=== PATIENT | female | born 1990 | race Caucasian/White ===

== ENCOUNTER 2020-07-03 15:07 | Observation (INO) ==
[2020-07-03 15:39] LABS: Basophils % 0.4 %; Hemoglobin 8.5 g/dL (11.5-15.4); Immature Granulocytes % 0.4 % (0-4); Red Cell Distribution Width 18.6 % (11.5-14.5)
[2020-07-03 15:41] LABS: Eosinophils # 0.1 K/mcL (0.0-0.6); Eosinophils % 1.3 %; Hematocrit 28.9 % (35.3-44.9); Immature Platelets 5.7 % (1.1-6.1); Lymphocytes # 1.9 K/mcL (0.6-4.6); Lymphocytes % 17.9 %; Mean Corpuscular HGB Conc 29.4 g/dL (31.6-35.5); Mean Corpuscular Hemoglobin 19.7 pg (28.0-33.3); Mean Corpuscular Volume 66.9 fL (83.0-100.0); Mean Platelet Volume 10.8 fL (9.4-12.4); Monocytes # 0.6 K/mcL (0.0-1.3); Monocytes % 5.9 %; Neutrophils # 7.8 K/mcL (1.6-8.9); Platelet Count 250 K/mcL (140-400); Red Blood Count 4.32 M/mcL (3.82-4.97); Segmented Neutrophils % 74.1 %; White Blood Count 10.5 K/mcL (4.3-11.1)
[2020-07-03 15:50] LABS: Bilirubin,Urine Negative (Negative); Blood,Urine Negative (Negative); Clarity,Urine Clear (Clear); Color,Urine Light-Yellow (Yellow); Glucose,Urine (UA) Normal (Normal); Ketones,Urine Negative (Negative); Leukocyte Esterase,Urine Negative (Negative); Nitrite,Urine Negative (Negative); Protein,Urine Trace mg/dL (Neg-Trace); Urobilinogen,Urine Normal (Normal)
[2020-07-03] MEDS ORDERED: *HR* FentaNYL (PF) 100 MCG/2 ML VIAL IVP ONE (15:57)
[2020-07-03] MEDS ORDERED: Ondansetron 4 MG/2 ML VIAL IVP ONE (15:57)
[2020-07-03] MEDS ORDERED: Pantoprazole 40 MG VIAL IVP ONE (15:57)
[2020-07-03 15:59] LABS: Alanine Aminotransferase 12 Units/L (7-52); Albumin 3.9 g/dL (3.5-5.7); Albumin/Globulin Ratio 1.4 (1.1-2.2); Alkaline Phosphatase 54 Units/L (34-104); Aspartate Amino Transferase 18 Units/L (13-39); BUN/Creatinine Ratio 16 (6-26); Bilirubin,Direct 0.1 mg/dL (0.0-0.2); Bilirubin,Indirect 0.2 mg/dL (0.0-1.0); Bilirubin,Total 0.3 mg/dL (0.3-1.0); Blood Urea Nitrogen 11 mg/dL (6-20); Calcium 8.7 mg/dL (8.6-10.3); Carbon Dioxide 27 mEq/L (23-29); Chloride 109 mEq/L (98-107); Globulin 2.7 g/dL (2.4-3.5); Glucose 109 mg/dL (70-105); Lipase 38 Units/L (11-82); Osmolality,Calculated 288 (280-300); Potassium 3.5 mEq/L (3.5-5.1); Sodium 139 mEq/L (136-145); Total Protein 6.6 g/dL (6.4-8.9); eGFR For African Americans > 60 (> 60); eGFR For Non-African Americans > 60 (> 60)
[2020-07-03 16:11] LABS: Microcytosis Present (Not Present); Ovalocytes 1+ (Not Present); Platelet Estimate Normal (Normal)
[2020-07-03] MEDS ORDERED: Isovue-370 500 ML BOTTLE IVP ONE (16:20)
[2020-07-03] MEDS ORDERED: Ondansetron ODT 4 MG TAB.RAPDIS SL PRN (16:25)
[2020-07-03] MEDS ORDERED: Mag Hydrox/Al Hydrox/Simeth 30 ML UDC PO PRN (16:25)
[2020-07-03] MEDS ORDERED: Naloxone 0.4 MG/ML INJ IVP PRN (16:25)
[2020-07-03 17:15] LABS: Ferritin < 8 ng/mL (10-120); Iron < 10 mcg/dL (50-170); Transferrin 308 mg/dL (203-362)
[2020-07-03 17:16] LABS: Hemoglobin 7.6 g/dL (11.5-15.4)
[2020-07-03 17:18] LABS: Hematocrit 26.6 % (35.3-44.9)
[2020-07-03] MEDS ORDERED: Pantoprazole 40 MG VIAL IVP SCH (18:00)
[2020-07-03] MEDS: Iron Sucrose Complex 250 MG in 0.9 % Sodium Chloride 250 ML IVPB SCH (20:55)
[2020-07-03 21:47] LABS: Hematocrit 27.2 % (35.3-44.9); Hemoglobin 7.7 g/dL (11.5-15.4)
[2020-07-04] MEDS: Pantoprazole 40 MG VIAL IVP SCH ×2 (05:04→16:59)
[2020-07-04 05:14] LABS: Hematocrit 29.3 % (35.3-44.9); Hemoglobin 8.1 g/dL (11.5-15.4); Mean Corpuscular HGB Conc 27.6 g/dL (31.6-35.5); Mean Corpuscular Hemoglobin 19.1 pg (28.0-33.3); Mean Corpuscular Volume 68.9 fL (83.0-100.0); Platelet Count 242 K/mcL (140-400); Red Blood Count 4.25 M/mcL (3.82-4.97); Red Cell Distribution Width 18.6 % (11.5-14.5); White Blood Count 7.2 K/mcL (4.3-11.1)
[2020-07-04 05:33] LABS: Alanine Aminotransferase 11 Units/L (7-52); Albumin 3.8 g/dL (3.5-5.7); Albumin/Globulin Ratio 1.5 (1.1-2.2); Alkaline Phosphatase 49 Units/L (34-104); Aspartate Amino Transferase 16 Units/L (13-39); BUN/Creatinine Ratio 14 (6-26); Bilirubin,Total 0.3 mg/dL (0.3-1.0); Blood Urea Nitrogen 10 mg/dL (6-20); Calcium 8.5 mg/dL (8.6-10.3); Carbon Dioxide 26 mEq/L (23-29); Chloride 108 mEq/L (98-107); Globulin 2.6 g/dL (2.4-3.5); Glucose 92 mg/dL (70-105); Osmolality,Calculated 287 (280-300); Potassium 3.7 mEq/L (3.5-5.1); Sodium 139 mEq/L (136-145); Total Protein 6.4 g/dL (6.4-8.9); eGFR For African Americans > 60 (> 60); eGFR For Non-African Americans > 60 (> 60)
[2020-07-04] MEDS: Iron Sucrose Complex 250 MG in 0.9 % Sodium Chloride 250 ML IVPB SCH (08:49)
[2020-07-04 10:23] LABS: Adenovirus Not Detected (Not Detect); Bordetella Pertussis Not Detected (Not Detect); Chlamydophila pneumoniae Not Detected (Not Detect); Coronavirus 229E Not Detected (Not Detect); Coronavirus HKU1 Not Detected (Not Detect); Coronavirus NL63 Not Detected (Not Detect); Coronavirus OC43 Not Detected (Not Detect); Human Metapneumovirus Not Detected (Not Detect); Human Rhinovirus/Enterovirus Not Detected (Not Detect); Influenza A Subtype 2009 H1 Not Detected (Not Detect); Influenza B Not Detected (Not Detect); Mycoplasma pneumoniae Not Detected (Not Detect); Parainfluenza Virus 1 Not Detected (Not Detect); Parainfluenza Virus 2 Not Detected (Not Detect); Parainfluenza Virus 3 Not Detected (Not Detect); Parainfluenza Virus 4 Not Detected (Not Detect); Respiratory Syncytial Virus Not Detected (Not Detect); SARS-CoV-2 Not Detected (Not Detect)
[2020-07-04] MEDS ORDERED: Lidocaine -MPF 2% 2 ML VIAL ONE (10:36)
[2020-07-04] MEDS ORDERED: *HR* Propofol 200 MG/20 ML VIAL IVP ONE (10:36)
[2020-07-04] MEDS ORDERED: Ibuprofen 400 MG TABLET PO PRN (12:54)
[2020-07-04 17:05] VITALS: BP 114/67
== END 2020-07-04 18:17 | disposition home or self-care (01) ==
LOC: SUATTDRO → EMEROOARM 15:07 → 3BNU 15:07 → SUATTDRO 16:36 → 3BNU 17:52
PROVIDERS: ADMIT Family Medicine; ATTEND Family Medicine
PROC: ENDOEBX (2020-07-04 10:45)

== ENCOUNTER 2020-07-07 19:57 | Observation (INO) ==
[2020-07-07] MEDS ORDERED: Ondansetron 4 MG/2 ML VIAL IVP ONE (20:08)
[2020-07-07] MEDS ORDERED: GI Cocktail 40 ML EACH PO ONE (20:08)
[2020-07-07] MEDS ORDERED: 0.9 % Sodium Chloride 1,000 ML IVC ONE (20:08)
[2020-07-07] MEDS ORDERED: Morphine Sulfate 2 MG/ML SYRINGE IVP ONE (20:08)
[2020-07-07] MEDS ORDERED: Isovue-370 500 ML BOTTLE IVP ONE (20:10)
[2020-07-07 20:32] LABS: Hemoglobin 8.3 g/dL (11.5-15.4)
[2020-07-07 20:34] LABS: Basophils % 0.4 %; Eosinophils # 0.2 K/mcL (0.0-0.6); Eosinophils % 3.4 %; Immature Granulocytes % 0.4 % (0-4); Lymphocytes % 28.8 %; Mean Corpuscular HGB Conc 28.6 g/dL (31.6-35.5); Mean Corpuscular Hemoglobin 19.6 pg (28.0-33.3); Mean Corpuscular Volume 68.6 fL (83.0-100.0); Monocytes # 0.5 K/mcL (0.0-1.3); Monocytes % 7.3 %; Neutrophils # 4.1 K/mcL (1.6-8.9); Platelet Count 211 K/mcL (140-400); Red Blood Count 4.23 M/mcL (3.82-4.97); Red Cell Distribution Width 19.9 % (11.5-14.5); Segmented Neutrophils % 59.7 %; White Blood Count 6.9 K/mcL (4.3-11.1)
[2020-07-07 20:37] LABS: Bilirubin,Urine Negative (Negative); Blood,Urine Moderate (Negative); Clarity,Urine Clear (Clear); Color,Urine Light-Yellow (Yellow); Glucose,Urine (UA) Normal (Normal); Ketones,Urine Negative (Negative); Leukocyte Esterase,Urine Negative (Negative); Mucus,Urine Few per lpf (None-Few); Nitrite,Urine Negative (Negative); Protein,Urine Trace mg/dL (Neg-Trace); RBC,Urine 0-3 per hpf (0-3); Specific Gravity,Urine 1.029 (1.010-1.025); Squamous Epithelial Cell,Urine Few per hpf (None-Few); WBC,Urine 0-3 per hpf (0-3)
[2020-07-07 20:40] LABS: Prothrombin Time 11.4 Seconds (9.4-12.1)
[2020-07-07 20:42] LABS: Activated Partial Thrombo Time 28.9 Seconds (26.0-36.0)
[2020-07-07 20:44] LABS: Hypochromasia Present (Not Present); Microcytosis Present (Not Present)
[2020-07-07 20:54] LABS: Alanine Aminotransferase 56 Units/L (7-52); Albumin 3.7 g/dL (3.5-5.7); Albumin/Globulin Ratio 1.4 (1.1-2.2); Alkaline Phosphatase 132 Units/L (34-104); Aspartate Amino Transferase 106 Units/L (13-39); BUN/Creatinine Ratio 18 (6-26); Bilirubin,Direct 0.1 mg/dL (0.0-0.2); Bilirubin,Indirect 0.2 mg/dL (0.0-1.0); Bilirubin,Total 0.3 mg/dL (0.3-1.0); Blood Urea Nitrogen 12 mg/dL (6-20); Calcium 8.4 mg/dL (8.6-10.3); Carbon Dioxide 25 mEq/L (23-29); Chloride 107 mEq/L (98-107); Globulin 2.7 g/dL (2.4-3.5); Glucose 85 mg/dL (70-105); Lipase 40 Units/L (11-82); Osmolality,Calculated 285 (280-300); Potassium 3.6 mEq/L (3.5-5.1); Sodium 138 mEq/L (136-145); Total Protein 6.4 g/dL (6.4-8.9); Troponin I < 0.03 ng/mL (< 0.04); eGFR For African Americans > 60 (> 60); eGFR For Non-African Americans > 60 (> 60)
[2020-07-07] MEDS ORDERED: *HR* HYDROmorphone (PF) 1 MG/ML SYRINGE IVP ONE (22:26)
[2020-07-07] MEDS ORDERED: Methylnaltrexone 12 MG/0.6 ML SYRINGE SQ ONE (22:27)
[2020-07-07] MEDS ORDERED: *HR* Metoprolol 5 MG/5 ML VIAL IVP PRN (23:34)
[2020-07-07] MEDS ORDERED: *HR* OxyCODONE/APAP 5/325 TABLET PO PRN (23:34)
[2020-07-07] MEDS ORDERED: Ondansetron 4 MG/2 ML VIAL IVP PRN (23:34)
[2020-07-07] MEDS ORDERED: 0.9 % Sodium Chloride 1,000 ML IVC SCH (23:45)
[2020-07-08] MEDS: cefOXitin 2,000 MG in 0.9 % Sodium Chloride Mini Bag 100 ML IVP SCH ×2 (00:11→08:06)
[2020-07-08] MEDS ORDERED: *HR* Midazolam HCl 2 MG/2 ML VIAL ONE (06:54)
[2020-07-08] MEDS ORDERED: *HR* Propofol 200 MG/20 ML VIAL IVP ONE (06:54)
[2020-07-08] MEDS ORDERED: *HR* FentaNYL (PF) 100 MCG/2 ML VIAL ONE (06:54)
[2020-07-08] MEDS ORDERED: *HR* Rocuronium Bromide 50 MG/5 ML VIAL ONE (07:13)
[2020-07-08] MEDS ORDERED: Lidocaine -MPF 2% 2 ML VIAL ONE (07:13)
[2020-07-08] MEDS ORDERED: Ondansetron 4 MG/2 ML VIAL ONE (07:13)
[2020-07-08] MEDS ORDERED: Lidocaine HCL 4 ML Topical Solution (Laryng-O-Jet Kit Sterile Pak) TP ONE (07:13)
[2020-07-08] MEDS ORDERED: Isovue-300 50ML VIAL ONE (07:21)
[2020-07-08] MEDS ORDERED: Acetaminophen IV 1,000 MG/100 ML BAG IVPB ONE (07:55)
[2020-07-08] MEDS ORDERED: Promethazine 6.25 MG in Water for inj. (sterile) 20 ML IVPB PRN (07:57)
[2020-07-08] MEDS ORDERED: Morphine Sulfate 2 MG/ML SYRINGE IVP PRN (07:57)
[2020-07-08] MEDS ORDERED: *HR* OxyCODONE Immed Rel 5 MG TABLET PO PRN (07:57)
[2020-07-08] MEDS ORDERED: Ondansetron 4 MG/2 ML VIAL IVP PRN ×2 (07:57→10:51)
[2020-07-08] MEDS ORDERED: CefOXitin 2,000 MG VIAL ONE (08:14)
[2020-07-08] MEDS ORDERED: EPHEDrine 50 MG/ML VIAL ONE (08:19)
[2020-07-08] MEDS ORDERED: Dexamethasone 4 MG/ML VIAL ONE (08:24)
[2020-07-08] MEDS ORDERED: Ketorolac 30 MG/ML VIAL ONE (08:43)
[2020-07-08] MEDS ORDERED: Sugammadex Sodium 200 MG/2 ML VIAL IV ONE (08:58)
[2020-07-08] MEDS ORDERED: *HR* OxyCODONE/APAP 5/325 TABLET PO PRN (10:51)
[2020-07-08 11:22] VITALS: BP 113/70
[2020-07-08] MEDS ORDERED: Ketorolac 15 MG/ML VIAL IVP SCH (12:00)
== END 2020-07-08 14:15 | disposition home or self-care (01) ==
LOC: EMEROOARM 19:57 → 3BNU 19:57
PROVIDERS: ADMIT Surgery; ATTEND Surgery

== ENCOUNTER 2020-07-11 18:47 | Inpatient (IN) ==
[2020-07-11] MEDS ORDERED: Isovue-370 500 ML BOTTLE IVP ONE (19:30)
[2020-07-11] MEDS ORDERED: *HR* FentaNYL (PF) 100 MCG/2 ML VIAL IVP ONE (19:30)
[2020-07-11] MEDS ORDERED: Ondansetron 4 MG/2 ML VIAL IVP ONE ×2 (19:30→22:45)
[2020-07-11] MEDS ORDERED: 0.9 % Sodium Chloride 1,000 ML IVC STA (19:34)
[2020-07-11 19:39] LABS: Hemoglobin 9.2 g/dL (11.5-15.4)
[2020-07-11 19:41] LABS: Basophils % 0.3 %; Eosinophils # 0.2 K/mcL (0.0-0.6); Eosinophils % 3.1 %; Hematocrit 31.3 % (35.3-44.9); Immature Granulocytes % 0.3 % (0-4); Immature Platelets 6.6 % (1.1-6.1); Lymphocytes % 30.9 %; Mean Corpuscular HGB Conc 29.4 g/dL (31.6-35.5); Mean Corpuscular Hemoglobin 20.6 pg (28.0-33.3); Monocytes # 0.5 K/mcL (0.0-1.3); Monocytes % 8.3 %; Neutrophils # 3.7 K/mcL (1.6-8.9); Platelet Count 286 K/mcL (140-400); Red Blood Count 4.47 M/mcL (3.82-4.97); Red Cell Distribution Width 22.5 % (11.5-14.5); Segmented Neutrophils % 57.1 %; White Blood Count 6.5 K/mcL (4.3-11.1)
[2020-07-11] MEDS ORDERED: Morphine Sulfate 2 MG/ML SYRINGE IVP ONE (20:02)
[2020-07-11 20:04] LABS: Alanine Aminotransferase 209 Units/L (7-52); Albumin 4.1 g/dL (3.5-5.7); Albumin/Globulin Ratio 1.5 (1.1-2.2); Alkaline Phosphatase 224 Units/L (34-104); Aspartate Amino Transferase 136 Units/L (13-39); BUN/Creatinine Ratio 13 (6-26); Bilirubin,Direct 1.5 mg/dL (0.0-0.2); Bilirubin,Indirect 0.6 mg/dL (0.0-1.0); Bilirubin,Total 2.1 mg/dL (0.3-1.0); Blood Urea Nitrogen 8 mg/dL (6-20); Calcium 9.2 mg/dL (8.6-10.3); Carbon Dioxide 30 mEq/L (23-29); Chloride 104 mEq/L (98-107); Globulin 2.8 g/dL (2.4-3.5); Glucose 96 mg/dL (70-105); Lipase 120 Units/L (11-82); Osmolality,Calculated 286 (280-300); Potassium 3.7 mEq/L (3.5-5.1); Sodium 139 mEq/L (136-145); Total Protein 6.9 g/dL (6.4-8.9); eGFR For African Americans > 60 (> 60); eGFR For Non-African Americans > 60 (> 60)
[2020-07-11 22:22] LABS: Bilirubin,Urine Negative (Negative); Blood,Urine Large (Negative); Clarity,Urine Clear (Clear); Color,Urine Yellow (Yellow); Glucose,Urine (UA) Normal (Normal); Hyaline Casts,Urine Few per lpf (None Seen); Ketones,Urine Negative (Negative); Leukocyte Esterase,Urine Negative (Negative); Mucus,Urine Few per lpf (None-Few); Nitrite,Urine Negative (Negative); Protein,Urine Negative (Neg-Trace); RBC,Urine 0-3 per hpf (0-3); Specific Gravity,Urine 1.019 (1.010-1.025); Squamous Epithelial Cell,Urine Few per hpf (None-Few); Urobilinogen,Urine Normal (Normal); WBC,Urine 0-3 per hpf (0-3)
[2020-07-12] MEDS: 0.9 % Sodium Chloride 1,000 ML IVC SCH ×2 (00:29→16:38)
[2020-07-12] MEDS: *HR* OxyCODONE/APAP 5/325 TABLET PO PRN ×2 (05:15→13:25)
[2020-07-12 07:01] LABS: Basophils % 0.6 %; Immature Granulocytes % 0.2 % (0-4); Lymphocytes % 37.6 %; Mean Corpuscular HGB Conc 28.3 g/dL (31.6-35.5)
[2020-07-12 07:03] LABS: Eosinophils # 0.2 K/mcL (0.0-0.6); Eosinophils % 3.6 %; Hematocrit 29.7 % (35.3-44.9); Hemoglobin 8.4 g/dL (11.5-15.4); Lymphocytes # 1.8 K/mcL (0.6-4.6); Mean Corpuscular Volume 70.5 fL (83.0-100.0); Mean Platelet Volume 11.6 fL (9.4-12.4); Monocytes # 0.4 K/mcL (0.0-1.3); Monocytes % 9.1 %; Neutrophils # 2.3 K/mcL (1.6-8.9); Platelet Count 218 K/mcL (140-400); Red Blood Count 4.21 M/mcL (3.82-4.97); Red Cell Distribution Width 22.9 % (11.5-14.5); Segmented Neutrophils % 48.9 %; White Blood Count 4.7 K/mcL (4.3-11.1)
[2020-07-12 07:23] LABS: Alanine Aminotransferase 158 Units/L (7-52); Albumin 3.5 g/dL (3.5-5.7); Albumin/Globulin Ratio 1.5 (1.1-2.2); Alkaline Phosphatase 193 Units/L (34-104); Aspartate Amino Transferase 98 Units/L (13-39); BUN/Creatinine Ratio 11 (6-26); Bilirubin,Direct 1.1 mg/dL (0.0-0.2); Bilirubin,Indirect 0.6 mg/dL (0.0-1.0); Bilirubin,Total 1.7 mg/dL (0.3-1.0); Blood Urea Nitrogen 7 mg/dL (6-20); Calcium 8.6 mg/dL (8.6-10.3); Carbon Dioxide 26 mEq/L (23-29); Chloride 107 mEq/L (98-107); Globulin 2.4 g/dL (2.4-3.5); Glucose 80 mg/dL (70-105); Lipase 18 Units/L (11-82); Osmolality,Calculated 285 (280-300); Potassium 3.9 mEq/L (3.5-5.1); Sodium 139 mEq/L (136-145); Total Protein 5.9 g/dL (6.4-8.9); eGFR For African Americans > 60 (> 60); eGFR For Non-African Americans > 60 (> 60)
[2020-07-12 08:03] LABS: Anisocytosis 1+ (Not Present); Hypochromasia Present (Not Present); Microcytosis Present (Not Present); Platelet Estimate Normal (Normal)
[2020-07-12] MEDS: Ondansetron 4 MG/2 ML VIAL IVP PRN ×2 (13:20→21:10)
[2020-07-13] MEDS: Ondansetron 4 MG/2 ML VIAL IVP PRN ×3 (03:33→18:33)
[2020-07-13] MEDS: 0.9 % Sodium Chloride 1,000 ML IVC SCH ×2 (03:34→16:14)
[2020-07-13 06:17] LABS: Albumin 3.5 g/dL (3.5-5.7); Albumin/Globulin Ratio 1.4 (1.1-2.2); Bilirubin,Indirect 0.6 mg/dL (0.0-1.0); Bilirubin,Total 1.6 mg/dL (0.3-1.0); Globulin 2.5 g/dL (2.4-3.5)
[2020-07-13] MEDS: *HR* OxyCODONE/APAP 5/325 TABLET PO PRN ×2 (08:06→16:14)
[2020-07-13] MEDS: cefOXitin 2,000 MG in 0.9 % Sodium Chloride Mini Bag 100 ML IVPB SCH (16:14)
[2020-07-13] MEDS ORDERED: 0.9 % Sodium Chloride 1,000 ML IVC SCH (20:45)
[2020-07-14] MEDS: cefOXitin 2,000 MG in 0.9 % Sodium Chloride Mini Bag 100 ML IVPB SCH ×4 (00:56→15:52)
[2020-07-14 02:18] LABS: Influenza A PCR Negative (Negative); Influenza B PCR Negative (Negative); Resp. Syncytial Virus PCR Negative (Negative)
[2020-07-14 02:19] LABS: SARS-CoV-2 by PCR (In House) Negative (Negative)
[2020-07-14 05:47] LABS: Hematocrit 34.1 % (35.3-44.9); Hemoglobin 9.7 g/dL (11.5-15.4); Mean Corpuscular HGB Conc 28.4 g/dL (31.6-35.5); Mean Corpuscular Hemoglobin 20.1 pg (28.0-33.3); Mean Corpuscular Volume 70.6 fL (83.0-100.0); Platelet Count 246 K/mcL (140-400); Red Blood Count 4.83 M/mcL (3.82-4.97); Red Cell Distribution Width 23.6 % (11.5-14.5); White Blood Count 5.5 K/mcL (4.3-11.1)
[2020-07-14 07:04] LABS: INR 1.1; Prothrombin Time 13.1 Seconds (9.4-12.1)
[2020-07-14 07:07] LABS: Activated Partial Thrombo Time 33.3 Seconds (26.0-36.0)
[2020-07-14 07:35] LABS: Albumin 3.9 g/dL (3.5-5.7); Albumin/Globulin Ratio 1.3 (1.1-2.2); Bilirubin,Direct 0.7 mg/dL (0.0-0.2); Bilirubin,Indirect 0.7 mg/dL (0.0-1.0); Bilirubin,Total 1.4 mg/dL (0.3-1.0); Globulin 2.9 g/dL (2.4-3.5); Total Protein 6.8 g/dL (6.4-8.9)
[2020-07-14] MEDS ORDERED: *HR* OxyCODONE/APAP 5/325 TABLET PO PRN (08:15)
[2020-07-14] MEDS ORDERED: Ringers Solution, Lactated 1,000 ML IVC SCH (08:15)
[2020-07-14] MEDS ORDERED: *HR* HYDROmorphone (PF) 1 MG/ML SYRINGE IVP PRN (08:15)
[2020-07-14] MEDS ORDERED: Ondansetron 4 MG/2 ML VIAL IVP PRN (08:15)
[2020-07-14] MEDS ORDERED: *HR* Propofol 200 MG/20 ML VIAL IVP ONE (09:45)
[2020-07-14] MEDS ORDERED: Dexamethasone 4 MG/ML VIAL ONE (09:45)
[2020-07-14] MEDS ORDERED: *HR* Rocuronium Bromide 50 MG/5 ML VIAL ONE (09:45)
[2020-07-14] MEDS ORDERED: *HR* FentaNYL (PF) 100 MCG/2 ML VIAL ONE ×2 (09:45→10:57)
[2020-07-14] MEDS ORDERED: Lidocaine -MPF 2% 2 ML VIAL ONE (09:45)
[2020-07-14] MEDS ORDERED: *HR* Succinylcholine 200 MG/10 ML VIAL IVP ONE (09:45)
[2020-07-14] MEDS ORDERED: Ondansetron 4 MG/2 ML VIAL ONE (09:45)
[2020-07-14] MEDS ORDERED: Indomethacin 50 MG SUPP.RECT RC ONE (11:07)
[2020-07-14] MEDS ORDERED: Promethazine 6.25 MG in Water for inj. (sterile) 20 ML IVPB PRN (11:52)
[2020-07-14] MEDS: 0.9 % Sodium Chloride 1,000 ML IVC SCH ×2 (12:52→18:30)
[2020-07-15] MEDS: cefOXitin 2,000 MG in 0.9 % Sodium Chloride Mini Bag 100 ML IVPB SCH ×2 (00:01→09:19)
[2020-07-15] MEDS: *HR* OxyCODONE/APAP 5/325 TABLET PO PRN (02:06)
[2020-07-15 05:20] LABS: Hematocrit 31.2 % (35.3-44.9); Immature Platelets 7.1 % (1.1-6.1); Mean Corpuscular HGB Conc 28.8 g/dL (31.6-35.5); Mean Corpuscular Hemoglobin 20.3 pg (28.0-33.3); Mean Corpuscular Volume 70.3 fL (83.0-100.0); Platelet Count 240 K/mcL (140-400); Red Blood Count 4.44 M/mcL (3.82-4.97); Red Cell Distribution Width 23.1 % (11.5-14.5); White Blood Count 6.3 K/mcL (4.3-11.1)
[2020-07-15 05:46] LABS: Albumin 3.7 g/dL (3.5-5.7); Albumin/Globulin Ratio 1.4 (1.1-2.2); Bilirubin,Direct 0.4 mg/dL (0.0-0.2); Bilirubin,Indirect 0.5 mg/dL (0.0-1.0); Bilirubin,Total 0.9 mg/dL (0.3-1.0); Globulin 2.6 g/dL (2.4-3.5); Total Protein 6.3 g/dL (6.4-8.9)
[2020-07-15 07:44] VITALS: BP 134/85
[2020-07-15] MEDS: 0.9 % Sodium Chloride 1,000 ML IVC SCH (09:20)
== END 2020-07-15 12:47 | disposition home or self-care (01) | DRG 446 ==
LOC: 3ANU 18:47 → EMEROOARM 18:47 → 3ANU 23:56
PROVIDERS: ADMIT Surgery; ATTEND Surgery